=== PATIENT | female | born 1995 | race Caucasian/White ===

== ENCOUNTER 2020-10-27 20:56 | Inpatient (IN) | payer BC ==
[2020-10-27 21:24] VITALS: BMI 30.7
[2020-10-27] MEDS ORDERED: Lidocaine 1% (PF) 30 ML VIAL SC PRN (23:11)
[2020-10-27] MEDS ORDERED: Butorphanol Tartrate 1 MG/ML VIAL SLOW IVP PRN (23:11)
[2020-10-27] MEDS ORDERED: Ondansetron PF 4 MG/2 ML Vial IVP PRN (23:11)
[2020-10-27] MEDS ORDERED: Lactated Ringer's 1,000 ML IV SCH ×2 (23:11)
[2020-10-27] MEDS ORDERED: Promethazine HCl 25 MG/ML VIAL IM PRN (23:11)
[2020-10-27] MEDS ORDERED: hydrALAZINE 20 MG/ML VIAL SLOW IVP PRN (23:11)
[2020-10-27] MEDS ORDERED: HYDROcodone/Acetaminophen 5/325 mg Tablet PO PRN ×2 (23:11)
[2020-10-27] MEDS ORDERED: Ibuprofen 800 MG TAB PO PRN (23:11)
[2020-10-27] MEDS ORDERED: Lidocaine 1% (PF) 30 ML VIAL ONE (23:13)
[2020-10-27] MEDS ORDERED: NS w/ Oxytocin 30 units 500 ML ONE (23:13)
[2020-10-27] MEDS ORDERED: Oxytocin 10 UNITS/ML VIAL ONE (23:15)
[2020-10-27] MEDS ORDERED: NS w/ Oxytocin 30 units 500 ML IV PRN (23:21)
[2020-10-27 23:28] LABS: Hemoglobin 13.9 g/dL (12.0-15.5); Mean Corpuscular HGB CONC 34.7 g/dL (32.0-36.0); Mean Corpuscular Hemoglobin 32.7 pg (27.0-33.0); Mean Corpuscular Volume 94.4 fl (81.6-98.3); Mean Platelet Volume 10.5 fl (7.4-10.4); Platelet Count 147 10x3/uL (150-450); RBC Distribution Width 12.6 % (11.5-14.5); Red Blood Cell (RBC) Count 4.25 10x6/uL (3.90-5.03); White Blood Cell (WBC) Count 11.9 10x3/uL (3.5-10.5)
[2020-10-27 23:56] LABS: Syphilis Antibody Nonreactive (Nonreactive); Syphilis Antibody Index 0.02 S/CO (<1.00 Non-Reactive)
[2020-10-27 23:57] LABS: Hep B Surf Ag Non-Reactive S/CO (NonReactive)
[2020-10-27 23:58] LABS: HBSAg Index 0.14 S/CO (0-0.99)
[2020-10-28] MEDS ORDERED: Promethazine HCl 25 MG/ML VIAL IM PRN (05:05)
[2020-10-28] MEDS ORDERED: Milk Of Magnesia 30 ML UDCUP PO PRN (05:05)
[2020-10-28] MEDS ORDERED: Zolpidem Tartrate 5 MG TAB PO PRN (05:05)
[2020-10-28] MEDS ORDERED: Bisacodyl 10 MG SUPP PR PRN (05:05)
[2020-10-28] MEDS ORDERED: Ondansetron PF 4 MG/2 ML Vial IVP PRN (05:05)
[2020-10-28] MEDS ORDERED: hydrALAZINE 20 MG/ML VIAL SLOW IVP PRN (05:05)
[2020-10-28] MEDS ORDERED: Lanolin Ointment 7 GM TUBE TOP PRN (05:05)
[2020-10-28] MEDS ORDERED: Benzocaine-Menthol 82.5 ML CAN TOP PRN (05:05)
[2020-10-28] MEDS ORDERED: Preparation H Ointment 28 GM TUBE PR PRN (05:05)
[2020-10-28] MEDS ORDERED: HYDROcodone/Acetaminophen 5/325 mg Tablet PO PRN ×2 (05:05)
[2020-10-28] MEDS ORDERED: diphenhydrAMINE 25 MG CAP PO PRN (05:05)
[2020-10-28] MEDS ORDERED: Adacel (T-DAP) 0.5 ML SYRINGE IM ONE (05:05)
[2020-10-28] MEDS ORDERED: NS w/ Oxytocin 30 units 500 ML IV SCH (05:30)
[2020-10-28] MEDS ORDERED: Boostrix 0.5 ML (Tdap) VIAL IM ONE (05:30)
[2020-10-28] MEDS: Ibuprofen 800 MG TAB PO SCH ×2 (05:59→14:13)
[2020-10-28] MEDS: Ferrous Sulfate 325 MG TAB PO SCH ×2 (08:53→15:08)
[2020-10-28] MEDS: Docusate Calcium (SURFAK) 240 MG CAP PO SCH ×2 (08:55→22:12)
[2020-10-28] MEDS: Prenatal Vitamin 1 TAB PO SCH (08:55)
[2020-10-28 15:40] LABS: SARS-CoV-2 PCR by NAA Not Detected (NotDetected)
[2020-10-29] MEDS: Ibuprofen 800 MG TAB PO SCH ×3 (07:08→09:28)
[2020-10-29 08:15] VITALS: BP 116/64; TEMP 98
[2020-10-29] MEDS: Ferrous Sulfate 325 MG TAB PO SCH (08:16)
[2020-10-29] MEDS: Docusate Calcium (SURFAK) 240 MG CAP PO SCH (09:26)
[2020-10-29] MEDS: Prenatal Vitamin 1 TAB PO SCH (09:26)
== END 2020-10-29 13:20 | disposition home or self-care (01) | DRG 807 ==
LOC: CSHLD/OP 20:56 → CSHLD 23:00 → UNDOADMIN 10-28 00:10 → CSHPP 10-28 04:43 → CSHLD 10-28 04:43
PROVIDERS: ADMIT Obstetrics & Gynecology; ATTEND Obstetrics & Gynecology
PROC: 10E0XZZ Delivery of Products of Conception, External Approach (ICD-10-PCS; principal; 2020-10-27)
PROC: 0KQM0ZZ Repair Perineum Muscle, Open Approach (ICD-10-PCS; 2020-10-27)
DX: O70.1 Second degree perineal laceration during delivery (principal); Z37.0 Single live birth; Z20.822 Contact with and (suspected) exposure to COVID-19; Z3A.39 39 weeks gestation of pregnancy
CPT/HCPCS: 85027; 86780; 86850; 86870; 86900; 86901; 87340; 87635; 99285; J2001; J2590; U0003; U0005

== ENCOUNTER 2022-04-21 16:27 | Emergency (ER) | payer BC ==
[2022-04-21] MEDS ORDERED: Metoclopramide HCl 10 MG/2 ML VIAL ONE (17:16)
[2022-04-21] MEDS ORDERED: diphenhydrAMINE 50 MG/ML VIAL ONE (17:16)
[2022-04-21 17:19] LABS: #Monocytes 0.4 10x3/uL (0.0-1.1); #Neutrophils 10.6 10x3/uL (1.5-8.4); %Basophils 0.2 % (0.0-2.0); %Eosinophils 0.1 % (0.0-6.0); %Lymphocytes 2.7 % (18.0-47.0); %Monocytes 3.6 % (0.0-10.0); Hemoglobin 14.5 g/dL (12.0-15.5); Mean Corpuscular HGB CONC 36.6 g/dL (32.0-36.0); Mean Platelet Volume 9.3 fl (7.4-10.4); Platelet Count 144 10x3/uL (150-450); RBC Distribution Width 12.4 % (11.5-14.5); White Blood Cell (WBC) Count 11.4 10x3/uL (3.5-10.5)
[2022-04-21 17:37] LABS: ALT (SGPT) 9 U/L (8-55); AST (SGOT) 12 U/L (5-34); Albumin 3.5 g/dL (3.5-5.0); Alkaline Phosphatase 52 U/L (40-110); Anion Gap 15 mmol/L (10-20); BUN (Urea Nitrogen) 11 mg/dL (7.0-18.7); Bilirubin, Total 1.6 mg/dL (0.2-1.2); Calc. Creatinine Clearance 0 mL/min (70-130); Calcium 8.3 mg/dL (7.8-10.44); Carbon Dioxide 20 mmol/L (22-29); Chloride 106 mmol/L (98-107); Estimated GFR 122; Globulin 2.5 g/dL (2.4-3.5); Glucose 91 mg/dL (70-105); Lipase 44 U/L (8-78); Potassium 3.8 mmol/L (3.5-5.1); Sodium 137 mmol/L (136-145)
== END 2022-04-21 21:15 | disposition home or self-care (01) ==
LOC: CSHERS 16:27
DX: O21.2 Late vomiting of pregnancy (principal); O99.891 Other specified diseases and conditions complicating pregnancy; R10.13 Epigastric pain; Z3A.25 25 weeks gestation of pregnancy
CPT/HCPCS: 76705; 80053; 83690; 85025; 96361; 96374; 96375; J1200; J2765

== ENCOUNTER 2022-08-06 16:12 | Inpatient (IN) | payer BC ==
[2022-08-06 16:47] VITALS: BMI 32.1
[2022-08-06] MEDS ORDERED: Butorphanol Tartrate 1 MG/ML VIAL SLOW IVP PRN (16:59)
[2022-08-06] MEDS ORDERED: hydrALAZINE 20 MG/ML VIAL SLOW IVP PRN ×2 (16:59→18:55)
[2022-08-06] MEDS ORDERED: Lidocaine 1% (PF) 30 ML VIAL SC PRN (16:59)
[2022-08-06] MEDS ORDERED: Ibuprofen 800 MG TAB PO PRN (16:59)
[2022-08-06] MEDS ORDERED: HYDROcodone/Acetaminophen 5/325 mg Tablet PO PRN ×4 (16:59→18:55)
[2022-08-06] MEDS ORDERED: Promethazine HCl 25 MG/ML VIAL IM PRN ×2 (16:59→18:55)
[2022-08-06] MEDS ORDERED: Ondansetron PF 4 MG/2 ML Vial IVP PRN ×2 (16:59→18:55)
[2022-08-06] MEDS ORDERED: Lactated Ringer's 1,000 ML IV SCH (17:00)
[2022-08-06] MEDS ORDERED: NS w/ Oxytocin 30 units 500 ML IV SCH ×2 (17:00)
[2022-08-06 17:21] LABS: Hemoglobin 14.1 g/dL (12.0-15.5); Mean Corpuscular HGB CONC 35.6 g/dL (32.0-36.0); Mean Corpuscular Hemoglobin 32.8 pg (27.0-33.0); Mean Corpuscular Volume 92.1 fl (81.6-98.3); Mean Platelet Volume 9.7 fl (7.4-10.4); Platelet Count 167 10x3/uL (150-450); RBC Distribution Width 12.8 % (11.5-14.5)
[2022-08-06] MEDS ORDERED: Oxytocin 10 UNITS/ML VIAL ONE ×2 (17:31→17:41)
[2022-08-06 17:47] LABS: Syphilis Antibody Nonreactive (Nonreactive); Syphilis Antibody Index 0.03 S/CO (<1.00 Non-Reactive)
[2022-08-06 17:48] LABS: HBSAg Index 0.15 S/CO (0-0.99); Hep B Surf Ag Non-Reactive S/CO (NonReactive)
[2022-08-06] MEDS ORDERED: Bisacodyl 10 MG SUPP PR PRN (18:55)
[2022-08-06] MEDS ORDERED: Boostrix 0.5 ML (Tdap) VIAL (>/=7 yrs of age) IM ONE (18:55)
[2022-08-06] MEDS ORDERED: Preparation H Ointment 28 GM TUBE PR PRN (18:55)
[2022-08-06] MEDS ORDERED: diphenhydrAMINE 25 MG CAP PO PRN (18:55)
[2022-08-06] MEDS ORDERED: Lanolin Ointment 7 GM TUBE TOP PRN (18:55)
[2022-08-06] MEDS ORDERED: Benzocaine-Menthol 82.5 ML CAN TOP PRN (18:55)
[2022-08-06] MEDS ORDERED: Milk Of Magnesia 30 ML UDCUP PO PRN (18:55)
[2022-08-06] MEDS: Docusate 100 MG CAP PO SCH (22:25)
[2022-08-06] MEDS: Ibuprofen 800 MG TAB PO SCH (22:25)
[2022-08-07] MEDS: Ibuprofen 800 MG TAB PO SCH ×2 (04:50→14:05)
[2022-08-07] MEDS: Ferrous Sulfate 325 MG TAB PO SCH ×2 (08:25→16:18)
[2022-08-07] MEDS: Docusate 100 MG CAP PO SCH (08:27)
[2022-08-07] MEDS ORDERED: Prenatal Vitamin 1 TAB PO SCH (09:00)
[2022-08-07 11:27] VITALS: BP 122/81; TEMP 98
== END 2022-08-07 20:50 | disposition home or self-care (01) | DRG 807 ==
LOC: CSHLD/OP 16:12 → CSHLD 16:27 → CSHPP 21:15
PROVIDERS: ADMIT Obstetrics & Gynecology; ATTEND Obstetrics & Gynecology
PROC: 10E0XZZ Delivery of Products of Conception, External Approach (ICD-10-PCS; principal; 2022-08-06)
PROC: 0KQM0ZZ Repair Perineum Muscle, Open Approach (ICD-10-PCS; 2022-08-06)
PROC: 3E0334Z Introduction of Serum, Toxoid and Vaccine into Peripheral Vein, Percutaneous Approach (ICD-10-PCS; 2022-08-06)
DX: O26.893 Other specified pregnancy related conditions, third trimester (principal); O62.3 Precipitate labor; Z37.0 Single live birth; O70.1 Second degree perineal laceration during delivery; Z20.822 Contact with and (suspected) exposure to COVID-19; Z3A.40 40 weeks gestation of pregnancy; Z67.41 Type O blood, Rh negative
CPT/HCPCS: 36415; 85027; 85461; 86780; 86850; 86870; 86900; 86901; 87340; 90384; 96372; 99285; J2590

== ENCOUNTER 2023-12-20 21:59 | Emergency (ER) | payer BC ==
[2023-12-20 23:45] LABS: ALT (SGPT) 14 U/L (8-55); AST (SGOT) 16 U/L (5-34); Albumin 4.1 g/dL (3.5-5.0); Alkaline Phosphatase 53 U/L (40-110); Anion Gap 13 mmol/L (10-20); BUN (Urea Nitrogen) 17 mg/dL (7.0-18.7); Bilirubin, Total 2.8 mg/dL (0.2-1.2); Calc. Creatinine Clearance 0 mL/min (70-130); Calcium 8.7 mg/dL (7.8-10.44); Carbon Dioxide 24 mmol/L (22-29); Chloride 104 mmol/L (98-107); Estimated GFR 101; Globulin 2.6 g/dL (2.4-3.5); Glucose 134 mg/dL (70-105); Lipase 17 U/L (8-78); Potassium 3.6 mmol/L (3.5-5.1); Protein, Total 6.7 g/dL (6.0-8.3); Sodium 137 mmol/L (136-145)
[2023-12-21 00:19] LABS: #Basophils 0.01 10x3/uL (0.0-0.2); #Eosinphils 0.01 10x3/uL (0.0-0.5); #Monocytes 0.19 10x3/uL (0.0-1.1); #Neutrophils 11.94 10x3/uL (1.5-8.4); %Basophils 0.1 % (0.0-2.0); %Eosinophils 0.1 % (0.0-6.0); %Monocytes 1.5 % (0.0-10.0); %Neutrophils 94.9 % (40.0-75.0); Hematocrit 43.2 % (34.9-44.5); Mean Corpuscular HGB CONC 34.7 g/dL (32.0-36.0); Mean Corpuscular Hemoglobin 30.9 pg (27.0-33.0); Mean Corpuscular Volume 88.9 fL (81.6-98.3); Mean Platelet Volume 10.2 fL (7.4-10.4); Platelet Count 164 10x3/uL (150-450); RBC Distribution Width 12.3 % (11.5-14.5); Red Blood Cell (RBC) Count 4.86 10x6/uL (3.90-5.03); White Blood Cell (WBC) Count 12.6 10x3/uL (3.5-10.5)
== END 2023-12-20 23:59 | disposition home or self-care (01) ==
LOC: CSHERS 21:59
DX: K80.70 Calculus of gallbladder and bile duct without cholecystitis without obstruction (principal)
CPT/HCPCS: 36415; 76705; 80053; 83690; 85025